=== PATIENT | female | born 1985 | race Caucasian/White ===

== ENCOUNTER 2016-04-16 15:07 | Observation (INO) | payer BC ==
[~2016-04-16 15:07] MED LIST: LBT300 PO; ONDA4TAB7 SL; PROM25TA16 PO
[2016-04-16] MEDS ORDERED: LABETALOL HCL 200 MG TAB PO SCH (16:30)
[2016-04-16 16:33] LABS: HEMATOCRIT 34.1 % (37-47); MEAN CELL VOLUME 89.5 fL (80-100); MEAN CORPUSCULAR HEMOGLOBIN 33.1 pg (25-34); MEAN PLATELET VOLUME 9.8 fL (7.4-10.4); PLATELET COUNT 224 K/uL (130-400); RED BLOOD COUNT 3.81 M/uL (4.2-5.4); WHITE BLOOD COUNT 13.12 K/uL (4.8-10.8)
[2016-04-16] MEDS: LACTATED RINGER'S 1000ML 1,000 ML IV SCH ×2 (17:06→20:54)
[2016-04-16 17:07] LABS: ALB/GLOB RATIO 0.7 (0.9-2); ALKALINE PHOSPHATASE 94 U/L (45-117); ALT/SGPT 25 U/L (12-78); AST/SGOT 14 U/L (15-37); BLOOD UREA NITROGEN 5 mg/dl (7-18); BUN/CREATININE RATIO 9.6 (10-20); CARBON DIOXIDE 20 mmol/L (21-32); CHLORIDE 106 mmol/L (98-107); CREATININE 0.48 mg/dl (0.60-1.20); GLUCOSE 92 mg/dl (70-99); POTASSIUM 3.5 mmol/L (3.5-5.1); SODIUM 139 mmol/L (136-145)
[2016-04-16] MEDS ORDERED: HydrALAZINE HCL 20 MG/ML VIAL IV. SCH (18:50)
[2016-04-16] MEDS ORDERED: LABE1TAB28 PO (19:03)
[2016-04-16] MEDS: ONDANSETRON INJ 2 MG/ML 2 ML VIAL IV PRN (19:16)
[2016-04-16] MEDS ORDERED: NIFEdipine 10 MG CAP PO STA (19:55)
[2016-04-16] MEDS ORDERED: OXYCODONE/ACETAMINOPHEN 7.5-325 TAB PO PRN (20:15)
[2016-04-16] MEDS ORDERED: DOXY25TA7 (20:23)
[2016-04-16] MEDS: OXYCODONE/ACETAMINOPHEN 5-325 TAB PO PRN (20:40)
[2016-04-16] MEDS ORDERED: PANTOprazole SOD 40 MG TAB PO STA (21:15)
[2016-04-16] MEDS ORDERED: ZOLPIDEM TARTRATE 5 MG TAB PO PRN (21:15)
--- NOTE | 2016-04-16 22:24 | HISTORY & PHYSICAL EXAMINATION ---
DATE OF ADMISSION: 04/16/2016 The patient is a 31-year-old G3, P1, due date 05/27/2016, making her 34 weeks and 1 day today. The patient has a history of chronic gestational hypertension and is on 400 mg of labetalol 3 times a day. She was seen by maternal medicine yesterday for growth scan. growth scan was normal. She called today the office with complaints of headaches and generalized discomfort. She was sent to labor and delivery for evaluation. On arrival to labor and delivery, she has no shortness of breath or chills. She does complain of a funny sensation in her throat. She has a history of gastroesophageal reflux disease and thinks it is reflux. Pulse ox on room air is 98%. The patient is placed on the monitor and heart rate is category 1. She does not have contractions every 2-4 minutes. Cervical exam is 2 cm dilated. Cervix is thick with no effacement, -3 station. The patient's initial blood pressures on arrival are in the 170s/90s. COURSE: Gestational hypertension, on 400 mg of labetalol 3 times a day. PAST MEDICAL HISTORY: History of varicella, history of migraines, history of nephrolithiasis. PAST SURGICAL HISTORY: The patient has a history of ear surgery and breast augmentation as well as D\T\C. SOCIAL HISTORY: The patient denies tobacco, drug or alcohol use. MEDICATIONS: The patient is on vitamins, Protonix, as well as labetalol 400 mg 3 times a day. PHYSICAL EXAMINATION: GENERAL: Well-developed, well-nourished white female, in no acute distress. HEART: S1, S2, regular rhythm and rate. LUNGS: Clear to auscultation bilaterally. ABDOMEN: Gravid. The patient is having contractions about 2-4 minutes. PELVIC: The patient is 2 cm dilated. Cervix is thick. No effacement. The patient does have a little bit of bloody show upon examination with a speculum. EXTREMITIES: No cyanosis, clubbing or edema. ASSESSMENT AND PLAN: A 31-year-old G3, P1, at 34-plus weeks, history of gestational hypertension, on labetalol 400 mg 3 times a day. The patient continues to have elevated blood pressures. Plan is to admit the patient, follow her blood pressures and adjust her blood pressure medication. The patient has already started to benefit. Bedside ultrasound shows cephalic presentation of fetus.
[2016-04-17] MEDS ORDERED: LABETALOL HCL 100 MG TAB PO SCH
[2016-04-17] MEDS: ONDANSETRON INJ 2 MG/ML 2 ML VIAL IV PRN ×3 (00:28→11:31)
[2016-04-17] MEDS ORDERED: NURSING VERBAL MED ORDER ONE (00:45)
[2016-04-17] MEDS ORDERED: PROMETHAZINE HCL INJ 25 MG in SODIUM CHLORIDE 0.9% 50ML 50 ML IV STA (00:45)
[2016-04-17] MEDS: OXYCODONE/ACETAMINOPHEN 5-325 TAB PO PRN ×2 (01:03→07:10)
[2016-04-17] MEDS: LACTATED RINGER'S 1000ML 1,000 ML IV SCH ×2 (05:02→11:37)
[2016-04-17] MEDS: LABETALOL HCL 200 MG TAB PO SCH ×2 (08:00→13:51)
[2016-04-17] MEDS ORDERED: PROMETHAZINE HCL INJ 25 MG in SODIUM CHLORIDE 0.9% 50ML 50 ML IV PRN (11:45)
[2016-04-17 12:28] LABS: BASO % 0.2 %; BASO ABS # 0.02 K/uL (0-0.2); COMPLETE YES; EOS % 0.2 %; HEMATOCRIT 30.4 % (37-47); IG% 0.4 %; LYMPH % 16.3 %; LYMPH ABS # 2.09 K/uL (1.2-3.4); MEAN CELL VOLUME 90.7 fL (80-100); MEAN CORPUSCULAR HEMOGLOBIN 31.9 pg (25-34); MEAN CORPUSCULAR HGB CONC 35.2 g/dl (32-36); MEAN PLATELET VOLUME 9.8 fL (7.4-10.4); MONO % 6.7 %; NEUT % 76.2 %; PLATELET COUNT 223 K/uL (130-400); RED BLOOD COUNT 3.35 M/uL (4.2-5.4)
[2016-04-17] MEDS ORDERED: OXYCODONE/ACETAMINOPHEN 5-325 TAB PO PRN (12:30)
[2016-04-17] MEDS ORDERED: LACTATED RINGER'S 1000ML 1,000 ML IV SCH (12:30)
[2016-04-17 13:03] LABS: ALT/SGPT 20 U/L (12-78); AST/SGOT 13 U/L (15-37); BLOOD UREA NITROGEN 4 mg/dl (7-18); CALCIUM 8.3 mg/dl (8.5-10.1); CARBON DIOXIDE 20 mmol/L (21-32); CHLORIDE 109 mmol/L (98-107); CREATININE 0.45 mg/dl (0.60-1.20); GLUCOSE 69 mg/dl (70-99); POTASSIUM 3.5 mmol/L (3.5-5.1); SODIUM 140 mmol/L (136-145)
[2016-04-17 13:21] LABS: ALB/GLOB RATIO 0.7 (0.9-2); ALKALINE PHOSPHATASE 80 U/L (45-117)
[2016-04-17] MEDS ORDERED: IV FLUIDS COMPLETED PRN (14:15)
[2016-04-17 14:44] LABS: URINE APPEARANCE CLEAR (CLEAR); URINE BILIRUBIN NEG (NEG); URINE COLOR YELLOW; URINE EPITHELIAL CELL AUTO >30 /lpf (0-5); URINE NITRITE NEG (NEG); URINE PH >= 9.0 (4.5-7.5); URINE SPECIFIC GRAVITY 1.014 (1.000-1.030); UROBILINOGEN NEG (NEG)
[2016-04-17 15:03] LABS: MANUAL MICROSCOPIC REQUIRED? NO; REVIEW REQ? NO; URINE PROTIEN/CREAT RATIO 0.4 (0-0.2); URINE TOTAL PROTEIN 17.5 mg/dl (0-11.9)
[2016-04-17] MEDS ORDERED: ACET-749 PO (15:55)
--- NOTE | 2016-04-17 15:57 | Discharge Instructions ---
Discharge Instructions Admission Reason for Admission: Prolonged Monitoring, Blood Pressure Check Discharge Discharge Diagnosis / Problem: Gestational hypertension Discharge Goals Goal(s): Continuing OB care Activity Recommendations Activity Limitations: as noted below Lifting Limitations: no more than 25 pounds Exercise/Sports Limitations: rest today May Resume Sexual Activity: after follow-up appointment Shower/Bathe: no limitations Driving or Machine Use: resume 1 day after discharge ACTIVITY RECOMMENDATIONS: See Labor Sheet. SPECIAL CARE INSTRUCTIONS: Call Doctor if: * Regular contractions every 5 minutes or greater than 5 contractions in one hour. * Bleeding * Water breaks or is leaking * Decreased movement * Fever >100.4 degrees F * Pain not relieved by routine measures or pain medication ordered. FOLLOW UP VISIT: Return to Labor and Delivery on for /call for appointment time . Follow-up Visit with: When: . Current Hospital Diet Patient's current hospital diet: Regular Diet Discharge Diet Recommended Diet: Low Sodium Diet (2gm Na) Pending Studies Studies pending at discharge: no Medical Emergencies . Who to Call and When: Medical Emergencies: If at any time you feel your situation is an emergency, please call 911 immediately. . Non-Emergent Contact Non-Emergency issues call your: Surgeon Call Non-Emergent contact if: temperature is above 100.5, your pain is worsening . . "Provider Documentation" section prepared by Nathen Chapman. VTE Core Measure Inpt VTE Proph given/why not?: Treatment not indicated
--- NOTE | 2016-04-20 22:23 | DISCHARGE SUMMARY ---
CHIEF COMPLAINT: 1. complicated by hypertension. 2. History of headaches. HISTORY OF PRESENT ILLNESS: This is a 31-year-old G3, P1, due date 05/27/2016, making her 34 weeks and 1 day on 04/17/2016. The patient had a history of gestational hypertension, was on 400 mg of labetalol 3 times a day. She was seen by maternal medicine on 04/16/2016 for growth scan. Growth scan was normal. The patient called the office on 04/17/2016 with complaints of headache and generalized discomfort. She was sent to labor and delivery for evaluation. In labor and delivery, she had no shortness of breath, no chills, no fever. She had complaints of a funny sensation in her throat which was consistent with her history of gastroesophageal reflux disease. Pulse ox on room air was 98%. She was placed on the monitor and heart rate was category 1. She was brandon every 2-4 minutes. Cervical exam showed she was 2 cm dilated. Cervix, however, was thick with no effacement and -3 station. The patient's blood pressure on arrival was 170s over 90s. She received hydralazine and Procardia. Her blood pressure medication was adjusted. Her blood pressure improved to 130s-140s over 80. She underwent a workup for preeclampsia which was unremarkable. PAST MEDICAL HISTORY: 1. Gestational hypertension. 2. Gastroesophageal reflux disease. 3. History of migraines. 4. History of nephrolithiasis. PAST SURGICAL HISTORY: The patient has a history of ear and breast surgery. SOCIAL HISTORY: The patient denies tobacco, drug or alcohol use. MEDICATIONS: The patient was on labetalol 400 mg 3 times a day with Protonix and vitamins. FAMILY HISTORY: Noncontributory. ALLERGIES: THE PATIENT IS ALLERGIC TO BUTORPHANOL. PHYSICAL EXAMINATION: GENERAL: Well-developed, well-nourished white female in no acute distress. HEART: S1, S2, regular rhythm and rate. LUNGS: Clear to auscultation bilaterally. ABDOMEN: Nontender, nondistended. heart rate is category 1. PELVIC: The patient was 2 cm dilated. Cervix, however, was thick and -3. EXTREMITIES: No cyanosis, clubbing or edema. LABORATORY DATA: On 04/17/2016 showed hemoglobin of 10.7, hematocrit of 30.4. Complete chemistry was unremarkable. CONDITION ON DISCHARGE: Stable. OPERATION: None. DISCHARGE DIAGNOSES: 1. Gestational hypertension. 2. Headaches in . 3. Gastroesophageal reflux disease. PLAN ON DISCHARGE: The patient is discharged home with instructions regarding activity, diet, followup appointment and medication change.
== END 2016-04-17 16:20 | disposition home or self-care (01) ==
LOC: C.LD 15:07 → C.OPB 15:07 → C.LD 04-17 08:41
PROVIDERS: ADMIT Obstetrics & Gynecology; ATTEND Obstetrics & Gynecology
DX: O13.3 Gestational [pregnancy-induced] hypertension without significant proteinuria, third trimester (principal); O99.613 Diseases of the digestive system complicating pregnancy, third trimester; K21.9 Gastro-esophageal reflux disease without esophagitis; Z3A.34 34 weeks gestation of pregnancy; Z87.442 Personal history of urinary calculi

== ENCOUNTER 2016-04-28 17:00 | Inpatient (IN) | payer BC ==
[~2016-04-28] VITALS: Ht 160 cm; Wt 64.5 kg
[~2016-04-28 17:00] MED LIST changes: +ACET-749 PO; -LBT300 PO; -PROM25TA16 PO
[2016-04-28] MEDS ORDERED: PRENTAB26 PO (17:34)
[2016-04-28] MEDS ORDERED: LABE1TAB28 PO (17:34)
[2016-04-28 17:36] VITALS: Ht 160 cm; Wt 64.5 kg
[2016-04-28] MEDS ORDERED: MoRPHine SULFATE 10 MG/ML CARP/VIAL IV STA (17:48)
[2016-04-28] MEDS: LACTATED RINGER'S 1000ML 1,000 ML IV SCH (18:00)
[2016-04-28 18:01] LABS: BASO % 0.1 %; BASO ABS # 0.02 K/uL (0-0.2); EOS % 0.4 %; HEMATOCRIT 34.5 % (37-47); IG% 0.5 %; LYMPH % 20.9 %; MEAN CELL VOLUME 88.7 fL (80-100); MEAN CORPUSCULAR HEMOGLOBIN 32.4 pg (25-34); MEAN PLATELET VOLUME 9.8 fL (7.4-10.4); MONO % 3.4 %; NEUT % 74.7 %; PLATELET COUNT 195 K/uL (130-400); RED BLOOD COUNT 3.89 M/uL (4.2-5.4); WHITE BLOOD COUNT 13.38 K/uL (4.8-10.8)
[2016-04-28 18:17] LABS: COMPLETE YES; MEAN CORPUSCULAR HGB CONC 36.5 g/dl (32-36)
[2016-04-28 18:29] LABS: ALT/SGPT 17 U/L (12-78); AST/SGOT 13 U/L (15-37); BLOOD UREA NITROGEN 7 mg/dl (7-18); BUN/CREATININE RATIO 13.9 (10-20); CALCIUM 8.2 mg/dl (8.5-10.1); CARBON DIOXIDE 21 mmol/L (21-32); CHLORIDE 107 mmol/L (98-107); CREATININE 0.49 mg/dl (0.60-1.20); GLUCOSE 83 mg/dl (70-99); POTASSIUM 3.1 mmol/L (3.5-5.1); SODIUM 140 mmol/L (136-145); URIC ACID 4.4 mg/dl (2.6-7.2)
[2016-04-28] MEDS ORDERED: LABETALOL PO SCH ×2 (20:00)
[2016-04-28] MEDS ORDERED: LABETALOL HCL 300 MG TAB PO SCH (20:00)
[2016-04-28] MEDS ORDERED: NURSING VERBAL MED ORDER ONE (20:45)
[2016-04-28] MEDS ORDERED: ZOLPIDEM TARTRATE 10 MG TAB PO PRN (20:45)
[2016-04-28] MEDS ORDERED: IV FLUIDS COMPLETED PRN (20:45)
[2016-04-28] MEDS ORDERED: TERBUTALINE SULFATE 1 MG/ML VIAL SQ ONE (21:00)
[2016-04-28] MEDS: OXYCODONE/ACETAMINOPHEN 5-325 TAB PO PRN (21:34)
[2016-04-28] MEDS: ONDANSETRON INJ 2 MG/ML 2 ML VIAL IV PRN (23:42)
[2016-04-29] MEDS: LACTATED RINGER'S 1000ML 1,000 ML IV SCH ×2 (03:21→12:19)
[2016-04-29] MEDS: LABETALOL PO SCH ×6 (03:45→20:20)
[2016-04-29] MEDS ORDERED: HydrALAZINE HCL 20 MG/ML VIAL IV. STA (09:44)
[2016-04-29] MEDS ORDERED: MAGNESIUM SULFATE / WTR 1,000 ML IV SCH (11:14)
[2016-04-29] MEDS ORDERED: HydrALAZINE HCL 20 MG/ML VIAL IV. PRN (11:15)
[2016-04-29] MEDS ORDERED: LACTATED RINGER'S 1000ML 500 ML IV PRN ×2 (11:17→22:31)
[2016-04-29] MEDS ORDERED: OXYTOCIN 30 UNITS/500ML NSS IV PRN (11:30)
[2016-04-29] MEDS ORDERED: MAGNESIUM SULFATE 4GM / WTR 100ML IV ONE (11:30)
[2016-04-29 11:50] LABS: BASO % 0.2 %; BASO ABS # 0.02 K/uL (0-0.2); EOS % 0.3 %; HEMATOCRIT 32.7 % (37-47); IG% 0.3 %; LYMPH % 14.8 %; LYMPH ABS # 1.71 K/uL (1.2-3.4); MEAN CELL VOLUME 88.1 fL (80-100); MEAN CORPUSCULAR HEMOGLOBIN 32.3 pg (25-34); MEAN PLATELET VOLUME 9.9 fL (7.4-10.4); MONO % 4.1 %; NEUT % 80.3 %; PLATELET COUNT 176 K/uL (130-400); RED BLOOD COUNT 3.71 M/uL (4.2-5.4); WHITE BLOOD COUNT 11.57 K/uL (4.8-10.8)
[2016-04-29 11:52] LABS: COMPLETE YES; MEAN CORPUSCULAR HGB CONC 36.7 g/dl (32-36)
[2016-04-29 12:00] LABS: INR 0.9 (0.9-1.1); PROTHROMBIN TIME (PATIENT) 9.8 SECONDS (9.0-12.0)
[2016-04-29 12:13] LABS: ALT/SGPT 12 U/L (12-78); AST/SGOT 15 U/L (15-37); BLOOD UREA NITROGEN 4 mg/dl (7-18); CALCIUM 8.8 mg/dl (8.5-10.1); CARBON DIOXIDE 19 mmol/L (21-32); CHLORIDE 108 mmol/L (98-107); GLUCOSE 78 mg/dl (70-99); MAGNESIUM 1.9 mg/dl (1.8-2.4); POTASSIUM 3.5 mmol/L (3.5-5.1); SODIUM 141 mmol/L (136-145)
[2016-04-29 12:16] LABS: ALB/GLOB RATIO 0.7 (0.9-2); ALKALINE PHOSPHATASE 94 U/L (45-117)
[2016-04-29] MEDS: ONDANSETRON INJ 2 MG/ML 2 ML VIAL IV PRN ×2 (12:56→21:08)
[2016-04-29] MEDS ORDERED: PENICILLIN G POTASSIUM IV 6 MU in DEXTROSE 5% 250ML 250 ML IV ONE (14:00)
[2016-04-29] MEDS ORDERED: ACETAMINOPHEN 325 MG TAB PO PRN (16:30)
[2016-04-29] MEDS ORDERED: ACETAMINOPHEN 325 MG TAB ONE (16:40)
[2016-04-29] MEDS: PENICILLIN G POTASSIUM IV 3 MU in DEXTROSE 5% 100ML 100 ML IV PRN ×2 (17:58→22:29)
[2016-04-29] MEDS: OXYCODONE/ACETAMINOPHEN 5-325 TAB PO PRN (18:12)
[2016-04-29] MEDS ORDERED: BUPIVACAINE 0.25% 30 ML VIAL ONE (21:38)
[2016-04-29] MEDS ORDERED: EpHEDrine SULFATE INJ 50 MG/ML AMP ONE (21:38)
[2016-04-29] MEDS ORDERED: FENTANYL CITRATE INJ 50 MCG/1 ML 2 ML VIAL ONE (21:39)
[2016-04-29] MEDS ORDERED: FENTANYL 2MCG/ML ROPIV 1.25MG/ML 100ML BAG EPI ONE (21:39)
[2016-04-29] MEDS ORDERED: NALOXONE HCL INJ 1 MG in SODIUM CHLORIDE 0.9% 1000ML 1,000 ML IV PRN ×4 (22:31)
[2016-04-29] MEDS ORDERED: DiphenhydrAMINE HCL 50 MG/ML VIAL IV PRN (22:45)
[2016-04-29] MEDS ORDERED: NALOXONE HCL INJ 0.4 MG/1 ML VIAL/CARP IV PRN (22:45)
[2016-04-29] MEDS ORDERED: FENTANYL 2MCG/ML ROPIV 1.25MG/ML 100ML BAG EPI PRN (22:45)
[2016-04-29] MEDS ORDERED: EpHEDrine SULFATE INJ 50 MG/ML AMP IV PRN (22:45)
[2016-04-29] MEDS ORDERED: ONDANSETRON INJ 2 MG/ML 2 ML VIAL IV PRN (22:45)
[2016-04-29] MEDS ORDERED: NALBUPHINE HCL INJ 10 MG/ML AMP IV PRN (22:45)
[2016-04-29] MEDS ORDERED: PROMETHAZINE HCL INJ 25 MG in SODIUM CHLORIDE 0.9% 50ML 50 ML IV PRN (22:45)
[2016-04-29 23:24] LABS: URINE TOTAL PROTEIN 9.9 mg/dl (0-11.9)
[2016-04-29 23:27] LABS: URINE TOTAL PROTEIN CALC 323.7 mg/24 hr (0-149.1)
[2016-04-30] MEDS ORDERED: BENZOCAINE 20% AER SPR 82.5 GM CAN EXT PRN (03:45)
[2016-04-30] MEDS ORDERED: MEASLES, MUMPS & RUBELLA VIRUS VIAL SQ. ONE (03:45)
[2016-04-30] MEDS ORDERED: SUPERCREAM 0.870 % 15GM JAR EXT PRN (03:45)
[2016-04-30] MEDS ORDERED: OXYCODONE/ACETAMINOPHEN 5-325 TAB PO PRN (03:45)
[2016-04-30] MEDS ORDERED: HYDROCORTISONE ACETATE 25 MG SUPP PR PRN (03:45)
[2016-04-30] MEDS ORDERED: DIPHTHERIA/TETANUS/PERTUSSIS 0.5 ML SYR/VIAL IM. ONE (03:45)
[2016-04-30] MEDS ORDERED: ACETAMINOPHEN 325 MG TAB PO PRN (03:45)
[2016-04-30] MEDS ORDERED: LANOLIN OINT EXT PRN ×2 (03:45)
[2016-04-30] MEDS ORDERED: OXYTOCIN 30 UNITS/500ML NSS IV PRN (03:45)
[2016-04-30] MEDS ORDERED: LABETALOL HCL 300 MG TAB PO SCH (04:00)
[2016-04-30] MEDS: IBUPROFEN 600 MG TAB PO PRN ×4 (04:25→17:22)
[2016-04-30] MEDS ORDERED: ONDANSETRON 4MG OD TAB PO PRN (04:30)
[2016-04-30] MEDS: MAGNESIUM SULFATE / WTR 1,000 ML IV SCH ×2 (05:41→13:49)
[2016-04-30] MEDS: PRENATAL VITAMIN TAB PO SCH (08:00)
[2016-04-30] MEDS: FERROUS SULFATE 325 MG TAB PO SCH (08:00)
[2016-04-30] MEDS: DOCUSATE SODIUM 100 MG CAP PO SCH ×2 (08:00→20:00)
[2016-04-30 08:14] LABS: HEMATOCRIT 30.4 % (37-47); MEAN CELL VOLUME 89.7 fL (80-100); MEAN CORPUSCULAR HEMOGLOBIN 31.6 pg (25-34); MEAN CORPUSCULAR HGB CONC 35.2 g/dl (32-36); MEAN PLATELET VOLUME 10.1 fL (7.4-10.4); PLATELET COUNT 176 K/uL (130-400); RED BLOOD COUNT 3.39 M/uL (4.2-5.4); WHITE BLOOD COUNT 11.97 K/uL (4.8-10.8)
--- NOTE | 2016-04-30 08:47 | DELIVERY SUMMARY ---
DATE OF OPERATION: 04/30/2016 TIME OF DELIVERY OF BABY: 321. TIME OF DELIVERY OF PLACENTA: 328. DETAILS OF DELIVERY: The patient felt pressure and the head was found to be over the perineum and then head was delivered spontaneously and then shoulders again spontaneously right after the head. The baby was handed off to the mother where mouth and nose were suctioned. Cord was clamped x2 after 30 seconds and then cut, it was a 3-vessel cord. Cord blood was obtained. Baby was a viable male and vigorously crying. Vagina and perineum were checked for lacerations. There were first-degree lacerations bilaterally on both labia minora and one in the perineum on the posterior fourchette. They were repaired with 3-0 Vicryl on SH needle with [id number] stitches on each sides. Excellent hemostasis was achieved. Placenta was found to be in the vagina, delivered spontaneously intact and complete. Uterus was explored and found to be empty. Lower segment was cleared off all clots and debris. Fundus was firm. EBL was 100. Baby was a viable male infant with Apgars 8/9, weight is pending. No complications happened. Mother and baby tolerated the procedure well. Sponge, needle and instrument counts were correct x2 and I was present during the whole procedure. I attest to the content of the Intraoperative Record and any orders documented therein. Any exceptions are noted below. MTDD
--- NOTE | 2016-04-30 09:09 | Anesthesia Procedure Note ---
Anesthesia Epidural Removal Nt Date & Time Apr 30, 2016 at 09:09 Vital Signs Pain Intensity: 0.0 Notes Mental Status: alert / awake / arousable, participated in evaluation Nausea / Vomiting: adequately controlled Pain: adequately controlled Airway Patency, RR, SpO2: stable & adequate BP & HR: stable & adequate Hydration State: stable & adequate Neuraxial Anesthesia: was administered Anesthetic Complications: no major complications apparent, pt satisfied with anesthetic care Epidural: removed without complications, with tip intact
--- NOTE | 2016-04-30 09:24 | OB/GYN Progress Note ---
[employer] Progress Note Date of Service Apr 30, 2016. Subjective conversation w/ patient, physical exam Ambulation: limited ambulation Voiding: cruz catheter in place Passing Gas: Yes Diet Tolerance: Regular Diet Lochia: Small Feeding Type: Breast Feeding Objective Physical Exam General Appearance: WELL-APPEARING, NO APPARENT DISTRESS Abdomen: non tender, soft Fundus: Firm Extremities: non-tender, normal inspection, no pedal edema, no calf tenderness Laboratory Results Last 24 Hours Test 04/29/16 11:35 04/29/16 19:50 04/29/16 20:07 04/30/16 01:44 White Blood Count 11.57 K/uL Red Blood Count 3.71 M/uL Hemoglobin 12.0 g/dL Hematocrit 32.7 % Mean Corpuscular Volume 88.1 fL Mean Corpuscular Hemoglobin 32.3 pg Mean Corpuscular Hemoglobin Concent 36.7 g/dl Platelet Count 176 K/uL Mean Platelet Volume 9.9 fL Neutrophils (%) (Auto) 80.3 % Lymphocytes (%) (Auto) 14.8 % Monocytes (%) (Auto) 4.1 % Eosinophils (%) (Auto) 0.3 % Basophils (%) (Auto) 0.2 % Neutrophils # (Auto) 9.30 K/uL Lymphocytes # (Auto) 1.71 K/uL Monocytes # (Auto) 0.47 K/uL Eosinophils # (Auto) 0.03 K/uL Basophils # (Auto) 0.02 K/uL RDW Standard Deviation 41.7 fL RDW Coefficient of Variation 12.9 % Immature Granulocyte % (Auto) 0.3 % Immature Granulocyte # (Auto) 0.04 K/uL Prothrombin Time 9.8 SECONDS Prothromb Time International Ratio 0.9 Activated Partial Thromboplast Time 27.2 SECONDS Partial Thromboplastin Ratio 1.0 Sodium Level 141 mmol/L Potassium Level 3.5 mmol/L Chloride Level 108 mmol/L Carbon Dioxide Level 19 mmol/L Anion Gap 14.0 mmol/L Blood Urea Nitrogen 4 mg/dl Creatinine 0.40 mg/dl Est Creatinine Clear Calc Drug Dose 187.5 ml/min Estimated GFR () > 150.0 Estimated GFR (Non- 140.8 BUN/Creatinine Ratio 9.0 Random Glucose 78 mg/dl Calcium Level 8.8 mg/dl Magnesium Level 1.9 mg/dl 5.4 mg/dl 5.4 mg/dl Total Bilirubin 0.3 mg/dl Aspartate Amino Transf (AST/SGOT) 15 U/L Alanine Aminotransferase (ALT/SGPT) 12 U/L Alkaline Phosphatase 94 U/L Lactate Dehydrogenase 132 U/L Total Protein 6.5 gm/dl Albumin 2.7 gm/dl Globulin 3.8 gm/dl Albumin/Globulin Ratio 0.7 Urine Collection Time 24 HOURS Urine Total Volume 3270 mL Urine Total Protein 24 Hour 323.7 mg/24 hr Urine Total Protein 9.9 mg/dl Test 04/30/16 07:47 White Blood Count 11.97 K/uL Red Blood Count 3.39 M/uL Hemoglobin 10.7 g/dL Hematocrit 30.4 % Mean Corpuscular Volume 89.7 fL Mean Corpuscular Hemoglobin 31.6 pg Mean Corpuscular Hemoglobin Concent 35.2 g/dl RDW Standard Deviation 41.9 fL RDW Coefficient of Variation 13.0 % Platelet Count 176 K/uL Mean Platelet Volume 10.1 fL Magnesium Level 5.0 mg/dl Assessment and Plan Post- Day Number: Continue Routine Care: Stop Labetalol continue Magnesium sulfate for 24 hours monitor urine output
[2016-04-30] MEDS: LACTATED RINGER'S 1000ML 1,000 ML IV SCH ×2 (09:34→19:33)
[2016-04-30] MEDS: ZOLPIDEM TARTRATE 5 MG TAB PO PRN (21:26)
[2016-04-30] MEDS ORDERED: NURSING VERBAL MED ORDER ONE (22:15)
[2016-05-01 03:45] VITALS: BP 132/86; PULSE 70; TEMP 36.9
[2016-05-01 07:20] VITALS: BP 111/70; PULSE 61
[2016-05-01 07:45] VITALS: BP 119/67; PULSE 69; TEMP 36.7
[2016-05-01] MEDS: FERROUS SULFATE 325 MG TAB PO SCH (08:40)
[2016-05-01] MEDS: DOCUSATE SODIUM 100 MG CAP PO SCH ×2 (08:40→19:42)
[2016-05-01] MEDS: PRENATAL VITAMIN TAB PO SCH (08:40)
--- NOTE | 2016-05-01 10:29 | OB/GYN Progress Note ---
ADULT AND PEDIATRIC NEUROLOGIST Progress Note Date of Service: May 01, 2016. Patient is seen and examined. She feels " much better", no complaints. No more PAUL or nausea. She states those stopped 2 hours after she had the baby. Ambulating without dizziness. Voiding without difficulty Tolerating regular diet with out N&V Bleeding is minimal No fever/ chills/ CP/ SOB/ N&V/ Leg pain Bottle feeding without problems Date Time Temp Pulse Resp B/P Pulse Ox O2 Delivery O2 Flow Rate FiO2 05/01/16 07:20 61 111/70 05/01/16 03:45 36.9 70 18 132/86 Room Air 05/01/16 03:45 Room Air Last 24 Hours Test 04/30/16 14:15 04/30/16 20:07 05/01/16 01:49 Magnesium Level 4.3 mg/dl 4.1 mg/dl 3.9 mg/dl PE: General: Alert, orientedx3, NAD Abd: soft, NT, fundus firm, below Umbilicus Perineum intact, Lochia rubra minimal Ext; NT, no edema, Radha's sign neg/ neg AP: 31 yo s/p , s/p IOL for severe preeclampsia, ppd# 1 VSS Afebrile doing well off mag since 4 am Continue routine care All questions were answered D/C home tomorrow
[2016-05-01] MEDS: IBUPROFEN 600 MG TAB PO PRN ×2 (10:37→19:43)
[2016-05-01 15:45] VITALS: BP 136/83; PULSE 66; TEMP 36.4
[2016-05-01 19:45] VITALS: BP 138/79; PULSE 69; TEMP 37.3
[2016-05-01] MEDS ORDERED: BISACODYL 5 MG TABEC PO SCH (20:00)
[2016-05-01 23:45] VITALS: BP 137/77; PULSE 56; TEMP 36.7
[2016-05-02] MEDS: ZOLPIDEM TARTRATE 5 MG TAB PO PRN (00:11)
[2016-05-02] MEDS: IBUPROFEN 600 MG TAB PO PRN (03:53)
[2016-05-02] MEDS ORDERED: BISACODYL 10 MG SUPP PR PRN (07:00)
[2016-05-02 07:40] VITALS: BP 128/78; TEMP 36.5
[2016-05-02] MEDS ORDERED: MTR600X PO (08:22)
--- NOTE | 2016-05-02 08:25 | Discharge Instructions ---
Discharge Instructions Admission Reason for Admission: Blood Pressure Check Discharge Discharge Diagnosis / Problem: term pregnacy Discharge Goals Goal(s): Routine recovery after delivery Activity Recommendations Activity Limitations: as noted below Lifting Limitations: no more than 10 pounds Exercise/Sports Limitations: gradually increase as tolerated May Resume Sexual Activity: after follow-up appointment Shower/Bathe: no limitations Driving or Machine Use: resume 3 days after discharge . Instructions / Follow-Up Instructions / Follow-Up ACTIVITY RECOMMENDATIONS: * Gradual return to full activity over the next 2-3 weeks. * No lifting - nothing heavier than baby over the next 2-3 weeks. * Do not engage in vigorous exercise, sexual activity or sports until cleared by your physician. * Do not drive or operate any motorized equipment until cleared by your physician. * You may shower/bathe daily. BREAST CARE: If you are not breast feeding: * Wear a supportive bra 24 hours a day for one to two weeks. * Avoid stimulating your breasts and nipples as much as possible during the first few weeks after delivery. * When taking a shower, have the warm water hit your back, not breasts. * When your breasts feel full, apply ice packs. Usually three to four times a day helps ease the discomfort. * Take a mild pain medication (Tylenol/Motrin) when you are uncomfortable. If breast feeding: * Use breast milk to lubricate nipples. Lansinoh cream may be used for sore nipples. You do not need to remove cream prior to breast feeding. If using a different brand of cream, check the label for directions regarding removal of cream prior to nursing. * Wear a supportive bra. * If having problems with breasts or breast feeding, call a review consultant or your health care provider. EPISIOTOMY CARE: After delivery, if you have an episiotomy (stitches), the following steps will ease discomfort and aid healing. * For the first 24 hours after delivery, place ice packs next to your episiotomy to help reduce swelling. * After the first 24 hour-period, sitz baths, either portable or in the tub, are suggested. A shower with a shower arm sprayed over the episiotomy may be comforting. * Jackie care should be done after each voiding and bowel movement. Squirt warm water from a plastic bottle over the perineum (region of the body between the anus and urinary opening) and pat dry. * Use Dermoplast to ease discomfort. Shake container. [place] directly over the episiotomy. * Place a Tucks on a clean sanitary pad next to your episiotomy. OVER THE COUNTER MEDICATION: * For discomfort or pain, you may use Acetaminophen (Tylenol), Ibuprofen (Advil ), or Naproxen (Aleve) following the package directions. * For constipation you may use Colace following the package directions. SPECIAL CARE INSTRUCTIONS: When you are discharged from the hospital, it is important for you to follow the instructions listed below: * During the first week at home, you should be able to care for yourself and your baby. In addition, the usual light household activities are encouraged. * Limit your activities to the way you feel. Do not try to clean the house or move furniture. Be sensible. * If you actively engage in sports and have done so up until the time of your delivery, you may resume these activities as soon as you feel able. This may take up to one month or even longer. Use good judgment. * Continue to take your vitamins for at least six weeks after the of your baby. * Your diet need not be limited unless you were on a special diet before your delivery. Breast-feeding mothers need around 2500 calories per day and at least 64-80 ounces of fluid per day (8 to 10 glasses). * You should eat foods from the four major food groups. Crash diets or fad diets are to be avoided. Eating lean meats, fresh fruits and vegetables, low-fat dairy products, high fiber foods and a regular exercise program, will help you get back to your pre- weight without putting your health at risk. * Constipation is sometimes a problem after delivery. Take a mild laxative as needed. If breast feeding, Milk of Magnesia is acceptable to use. You may use a suppository or Fleets enema if no episiotomy. * A daily shower or tub bath is suggested. Be sure to thoroughly and gently dry the perineum. * A bloody vaginal discharge will usually continue until around four weeks post . A small amount of bleeding may continue for as long as six weeks. Vaginal discharge changes from the bright red bleeding after delivery to pink then brownish and finally yellowish-pink before becoming white and disappearing. * Bleeding may increase with activity. Your first period may come in 4-8 weeks. If you are breast feeding, your period may be delayed even longer. * [place] (sex) can begin whenever both you and your partner feel comfortable and do not have any form of genital infection. It is recommended that you wait until after your return appointment and discuss with your physician. If you have questions, please talk to your health care practitioner. A condom should be used to prevent infection and . * Foreplay, gentle intercourse and lubrication is very important the first several times to prevent pain. A water-based lubricant such as K-Y jelly or Astroglide may be used. * Tampons may be used six weeks after delivery. * Douching should be avoided for 6 weeks after delivery. * If you have RH negative blood and your baby is RH positive, you will receive RHOGAM by injection prior to discharge. The nurse will give you a card to keep with you that has the date and place that you received RHOGAM after delivery. * During your care, you had a Rubella screen done to check for the presence of rubella antibodies in your blood. If your test was negative, you will receive a Rubella vaccine prior to discharge. This vaccine may cause a fever, soreness at the injection site and flu-like symptoms. If these symptoms persist, notify your health care practitioner. is not advised for three months after a Rubella vaccine. There is a higher chance of having a baby with defects if conceived within three months of getting the vaccine. * If you were discharged 24 hours from delivery or before 48 hours: Visiting nurses will come to your home 48 hours after discharge to assess you and your baby. The visiting nurse will meet with you while you are in the hospital to arrange a time and get directions to your home. * Verbalizes understanding of car seat law as reviewed with patient nursing. * Car Seat hand-out given and reviewed with patient by nursing. * Shaken baby information reviewed with patient by nursing. Call you doctor if: * Heavy bleeding (saturating several pads an hour) or passing clots the size of your fist. * A fever >101 degrees F (38.3 degrees C) on two occasions four hours apart and/or chills. * Unusual pain in the pelvic or vaginal areas. * "Baby Blues" lasting longer than two weeks. If you have any questions or concerns, call your health care practitioner at . FOLLOW-UP VISIT: * Please call the office at to schedule a 6 week examination. It is important you keep this appointment. * It is important for you to make arrangements for either yearly or twice yearly check-ups thereafter. 6 weeks Current Hospital Diet Patient's current hospital diet: N/A, Regular OB Diet Discharge Diet Recommended Diet: Regular OB Diet Fluid Restriction: None Pending Studies Studies pending at discharge: no Medical Emergencies . Who to Call and When: Medical Emergencies: If at any time you feel your situation is an emergency, please call 911 immediately. . Non-Emergent Contact Non-Emergency issues call your: Primary Care Provider . . "Provider Documentation" section prepared by Ulices Barr. VTE Core Measure Inpt VTE Proph given/why not?: Treatment not indicated
--- NOTE | 2016-05-02 08:30 | OB/GYN Progress Note ---
GEOGRAPHIC INFORMATION SYSTEMS ANALYST Progress Note Date of Service May 02, 2016. Subjective conversation w/ patient, physical exam Ambulation: ambulating normally Voiding: no voiding problems Passing Gas: Yes Diet Tolerance: Regular Diet Lochia: Small Feeding Type: Bottle Feeding Objective Vital Signs Date Time Temp Pulse Resp B/P Pulse Ox O2 Delivery O2 Flow Rate FiO2 05/01/16 23:45 Room Air 05/01/16 23:45 36.7 56 18 137/77 Room Air 05/01/16 19:45 37.3 69 18 138/79 Room Air 05/01/16 15:45 Room Air 05/01/16 15:45 36.4 66 16 136/83 Room Air Physical Exam General Appearance: WELL-APPEARING, NO APPARENT DISTRESS Abdomen: non tender, soft Fundus: Firm Extremities: non-tender, normal inspection, no pedal edema, no calf tenderness Assessment and Plan Post- Day Number: 2 Continue Routine Care: discharged
[2016-05-02] MEDS: DOCUSATE SODIUM 100 MG CAP PO SCH (09:02)
[2016-05-02] MEDS: PRENATAL VITAMIN TAB PO SCH (09:02)
[2016-05-02] MEDS: FERROUS SULFATE 325 MG TAB PO SCH (09:02)
[2016-05-02 12:04] VITALS: BP_DIAS 78; PULSE 56; TEMP 36.5
== END 2016-05-02 12:25 | disposition home or self-care (01) | DRG 775 ==
LOC: C.LD 17:00 → C.OPB 17:00 → C.LD 17:35 → OBSVTOIN 04-29 11:17 → C.OBG 05-01 03:45
PROVIDERS: ADMIT Obstetrics & Gynecology; ATTEND Obstetrics & Gynecology
PROC: 10E0XZZ Delivery of Products of Conception, External Approach (ICD-10-PCS; principal; 2016-04-30)
PROC: 0HQ9XZZ Repair Perineum Skin, External Approach (ICD-10-PCS; principal; 2016-04-30)
PROC: 3E033VJ Introduction of Other Hormone into Peripheral Vein, Percutaneous Approach (ICD-10-PCS; principal; 2016-04-30)
DX: O14.14 Severe pre-eclampsia complicating childbirth (principal); O60.14X0 Preterm labor third trimester with preterm delivery third trimester, not applicable or unspecified; O70.0 First degree perineal laceration during delivery; O99.02 Anemia complicating childbirth; D64.9 Anemia, unspecified; Z37.0 Single live birth; Z3A.36 36 weeks gestation of pregnancy; Z79.899 Other long term (current) drug therapy

== ENCOUNTER → 2016-08-06 | Outpatient (CLI) | payer BC ==
[~2016-08-06] MED LIST changes: -ACET-749 PO; +MTR600X PO; +PRENTAB26 PO
--- NOTE | 2016-08-06 17:21 | DIAGNOSTIC IMAGING REPORT ---
CHEST 2 VIEWS ROUTINE CLINICAL HISTORY: Chest pain. COMPARISON STUDY: Chest radiograph and chest CT May 31, 2011. FINDINGS: Interval note is made of bilateral breast implants. There is no pneumothorax or pleural effusion. Cardiac size is normal. Mediastinal contours are normal. There is no evidence of pulmonary edema. IMPRESSION: No acute cardiopulmonary findings. Electronically signed by: Luis Hamilton M.D. 08/06/2016 5:19 PM Dictated Date/Time: 08/06/2016 5:19 PM
== END | disposition home or self-care (01) ==
LOC: C.RAD 16:30
PROVIDERS: ATTEND Nurse Practitioner
DX: R07.9 Chest pain, unspecified (principal)

== ENCOUNTER → 2016-11-05 | Outpatient (CLI) | payer BC ==
--- NOTE | 2016-11-05 08:25 | DIAGNOSTIC IMAGING REPORT ---
ULTRASOUND OF THE THYROID GLAND CLINICAL HISTORY: Palpable nodule. COMPARISON STUDY: No priors. TECHNIQUE: Real-time, grayscale, and color flow sonography of the thyroid gland is performed utilizing a high-frequency linear transducer. Images are reviewed in the transverse and longitudinal planes. FINDINGS: Right lobe: The right lobe of the thyroid gland is normal in size and homogeneous in echotexture, measuring 5.1 x 1.7 x 1.7 cm. There is a complex and largely cystic nodule in the lower pole measuring 1.6 x 1.3 x 1.4 cm. There is a convex nodule containing macroscopic colloid in the mid to lower pole measuring 0.7 x 0.6 x 0.7 cm. Additional subcentimeter hypoechoic nodules/colloid cysts are noted. Left lobe: The left lobe of the thyroid gland is normal in size and homogeneous in echotexture, measuring 4.4 x 1.2 x 1.5 cm. A colloid cyst in the midpole measures 0.6 x 0.4 x 0.5 cm. Additional subcentimeter hypoechoic nodules/colloid cysts are identified. Isthmus: The thyroid isthmus is normal in appearance and measures 0.3 cm in AP diameter. IMPRESSION: 1. There is a 1.6 cm predominantly cystic nodule in the right lower pole. This is of low suspicion and does not meet strict sonographic criteria for fine-needle aspiration (less than 2 cm in size with no microcalcifications identified). A precautionary 6-12 month follow-up ultrasound is recommended. 2. Additional subcentimeter hypoechoic nodules/colloid cysts are present bilaterally. Electronically signed by: Artur Mccabe M.D. 11/05/2016 8:23 AM Dictated Date/Time: 11/05/2016 8:01 AM
[2016-11-05 09:54] LABS: THYROID STIMULATING HORMONE 1.31 uIu/ml (0.300-4.500)
== END | disposition home or self-care (01) ==
LOC: C.ULTR 07:39
PROVIDERS: ATTEND Family Medicine Hospice and Palliative Medicine
DX: E04.2 Nontoxic multinodular goiter (principal)

== ENCOUNTER 2017-07-29 14:28 | Emergency (ER) | payer BC, OTHER ==
[~2017-07-29] VITALS: Ht 157.5 cm; Wt 45.4 kg
[2017-07-29 14:47] VITALS: TEMP 37; Ht 157.5 cm; Wt 45.4 kg
[2017-07-29] MEDS ORDERED: KETOROLAC TROMETHAMINE 30 MG/ML VIAL IV STA (15:34)
[2017-07-29] MEDS ORDERED: SODIUM CHLORIDE 0.9% 1000ML 1,000 ML IV STA ×2 (15:34→16:37)
[2017-07-29] MEDS ORDERED: ONDANSETRON INJ 2 MG/ML 2 ML VIAL IV STA (15:34)
[2017-07-29 16:15] LABS: BASO % 0.5 %; BASO ABS # 0.02 K/uL (0-0.2); EOS % 1.3 %; EOS ABS # 0.05 K/uL (0-0.5); HEMATOCRIT 39.4 % (37-47); HEMOGLOBIN 14.2 g/dL (12.0-16.0); IG# 0.01 K/uL (0.00-0.02); LYMPH % 32.9 %; MEAN CELL VOLUME 87.2 fL (80-100); MEAN CORPUSCULAR HEMOGLOBIN 31.4 pg (25-34); MEAN PLATELET VOLUME 9.3 fL (7.4-10.4); MONO % 7.8 %; MONO ABS # 0.31 K/uL (0.11-0.59); NEUT % 57.2 %; NEUT ABS # 2.26 K/uL (1.4-6.5); PLATELET COUNT 226 K/uL (130-400); RED CELL DISTRIBUTION WIDTH CV 12.9 % (11.5-14.5); RED CELL DISTRIBUTION WIDTH SD 41.2 fL (36.4-46.3); WHITE BLOOD COUNT 3.95 K/uL (4.8-10.8)
[2017-07-29 16:34] LABS: ALBUMIN 3.8 gm/dl (3.4-5.0); CREATININE 0.73 mg/dl (0.60-1.20); POTASSIUM 3.3 mmol/L (3.5-5.1)
[2017-07-29 16:37] LABS: TOTAL PROTEIN 7.3 gm/dl (6.4-8.2)
[2017-07-29] MEDS ORDERED: PROCHLORPERAZINE 5 MG/ML 2 ML VIAL IV STA (16:37)
[2017-07-29] MEDS ORDERED: DiphenhydrAMINE HCL 50 MG/ML VIAL IV STA (16:37)
--- NOTE | 2017-07-29 17:31 | DIAGNOSTIC IMAGING REPORT ---
ABDOMEN 2VIEW W/PA CHEST RTN CLINICAL HISTORY: Vomiting and diarrhea. Hypertension. COMPARISON STUDY: Chest x-ray dated 08/06/1969 FINDINGS: The erect chest reveals no evidence of free air. There is no evidence of focal pulmonary consolidation.] There are bilateral breast implants. Erect and supine views of the abdomen reveal no abnormally dilated loops of large or small bowel. There are no transition zone to indicate bowel obstruction. IMPRESSION: No evidence of bowel obstruction. No evidence of free air. Electronically signed by: Pb Mendoza M.D. 07/29/2017 5:30 PM Dictated Date/Time: 07/29/2017 5:29 PM
[2017-07-29 17:39] VITALS: BP 136/103; PULSE 82; O2SAT 100
--- NOTE | 2017-07-29 18:02 | EMERGENCY ROOM VISIT NOTE ---
History First contact with patient: 16:10 Chief Complaint: DEHYDRATION Stated Complaint: DEHYDRATION,NAUSEA,MIGRAINE,CRAMPS,TIRED,ACHY History of Present Illness Patient is a 32-year-old female who was initially seen and assessed by Tawny Rodriguez PA-C. Care was turned over to me. Please refer to Tawny's history and physical exam. Briefly, patient is an otherwise healthy 32-year-old female who presents to the emergency department feeling dehydrated. She is about 10 days ago, she had a 36 hour vomiting and diarrheal illness, which resolved, but she has subsequently developed some ongoing nausea, anorexia, vomiting and loose stools. She has intermittent headaches, feels fatigued, and has had lightheadedness and dizziness. Patient reports that she has had problems with dehydration in the past. She does report a history of migraines, but states that she has not had severe migraines since her . She has had headaches, which are a constant 4/10 with [id number]-[id number] medications. Review of Systems Review of systems as per HPI. All other systems reviewed were negative. 10 systems reviewed. Past Medical/Surgical History Medical Problems: (1) Abdominal pain complicating , antepartum (2) Gestational hypertension (3) Gestational hypertension w/o significant proteinuria in 3rd trimester (4) Hyperten preg NOS-unspec (5) Hypertension complicating (6) Migraine Unspecified W/O Intractable Migraine (7) Preeclampsia, severe (8) contractions Electronic medical records are reviewed and summarized as above/below. See Problem List. Social History Smoking Status: Never Smoker Alcohol Use: occasionally Marital Status: single Occupation Status: employed Current/Historical Medications No Active Prescriptions or Reported Meds Physical Exam Vital Signs Date Time Temp Pulse Resp B/P (MAP) Pulse Ox O2 Delivery O2 Flow Rate FiO2 07/29/17 17:39 82 18 136/103 100 Room Air 07/29/17 16:48 83 18 167/112 99 Room Air 07/29/17 15:42 92 20 186/108 100 Room Air 07/29/17 14:47 37.0 81 18 92 Room Air Physical Exam CONSTITUTIONAL: Patient is a petite, well-appearing 32-year-old female who is awake and alert and laying supine on the gurney in no acute distress. IV fluids are infusing. Review of her vital signs no blood pressure was initially documented at 186/108, repeat blood pressure on the monitor while I am in the exam room is 157/112. CARDIOVASCULAR: Regular rate and rhythm. RESPIRATORY: Breath sounds equal and clear to auscultation. ABDOMEN: Bowel sounds are present. Abdomen is soft, nontender and nondistended. INTEGUMENTARY: No lesions or rash, normal skin turgor. LYMPH: No lymphadenopathy. Medical Decision & Procedures ER Provider Diagnostic Interpretation: ABDOMEN 2VIEW W/PA CHEST RTN CLINICAL HISTORY: Vomiting and diarrhea. Hypertension. COMPARISON STUDY: Chest x-ray dated 08/06/1969 FINDINGS: The erect chest reveals no evidence of free air. There is no evidence of focal pulmonary consolidation.] There are bilateral breast implants. Erect and supine views of the abdomen reveal no abnormally dilated loops of large or small bowel. There are no transition zone to indicate bowel obstruction. IMPRESSION: No evidence of bowel obstruction. No evidence of free air. Laboratory Results 07/29/17 15:59 Red Blood Count 4.52, Mean Corpuscular Volume 87.2, Mean Corpuscular Hemoglobin 31.4, Mean Corpuscular Hemoglobin Concent 36.0, Mean Platelet Volume 9.3, Neutrophils (%) (Auto) 57.2, Lymphocytes (%) (Auto) 32.9, Monocytes (%) (Auto) 7.8, Eosinophils (%) (Auto) 1.3, Basophils (%) (Auto) 0.5, Neutrophils # (Auto) 2.26, Lymphocytes # (Auto) 1.30, Monocytes # (Auto) 0.31, Eosinophils # (Auto) 0.05, Basophils # (Auto) 0.02 07/29/17 15:59 Test 07/29/17 15:59 07/29/17 16:35 07/29/17 17:40 White Blood Count 3.95 K/uL (4.8-10.8) Red Blood Count 4.52 M/uL (4.2-5.4) Hemoglobin 14.2 g/dL (12.0-16.0) Hematocrit 39.4 % (37-47) Mean Corpuscular Volume 87.2 fL (80-100) Mean Corpuscular Hemoglobin 31.4 pg (25-34) Mean Corpuscular Hemoglobin Concent 36.0 g/dl (32-36) Platelet Count 226 K/uL (130-400) Mean Platelet Volume 9.3 fL (7.4-10.4) Neutrophils (%) (Auto) 57.2 % Lymphocytes (%) (Auto) 32.9 % Monocytes (%) (Auto) 7.8 % Eosinophils (%) (Auto) 1.3 % Basophils (%) (Auto) 0.5 % Neutrophils # (Auto) 2.26 K/uL (1.4-6.5) Lymphocytes # (Auto) 1.30 K/uL (1.2-3.4) Monocytes # (Auto) 0.31 K/uL (0.11-0.59) Eosinophils # (Auto) 0.05 K/uL (0-0.5) Basophils # (Auto) 0.02 K/uL (0-0.2) RDW Standard Deviation 41.2 fL (36.4-46.3) RDW Coefficient of Variation 12.9 % (11.5-14.5) Immature Granulocyte % (Auto) 0.3 % Immature Granulocyte # (Auto) 0.01 K/uL (0.00-0.02) Anion Gap 2.0 mmol/L (3-11) Est Creatinine Clear Calc Drug Dose 80.8 ml/min Estimated GFR () 128.1 Estimated GFR (Non- 110.5 BUN/Creatinine Ratio 18.5 (10-20) Calcium Level 9.0 mg/dl (8.5-10.1) Total Bilirubin 0.6 mg/dl (0.2-1) Direct Bilirubin 0.1 mg/dl (0-0.2) Aspartate Amino Transf (AST/SGOT) 16 U/L (15-37) Alanine Aminotransferase (ALT/SGPT) 22 U/L (12-78) Alkaline Phosphatase 55 U/L (45-117) Total Protein 7.3 gm/dl (6.4-8.2) Albumin 3.8 gm/dl (3.4-5.0) Lipase 97 U/L (73-393) Troponin I < 0.015 ng/ml (0-0.045) Thyroid Stimulating Hormone (TSH) 0.814 uIu/ml (0.300-4.500) Urine Color YELLOW Urine Appearance CLEAR (CLEAR) Urine pH 5.5 (4.5-7.5) Urine Specific [place] 1.020 (1.000-1.030) Urine Protein NEG (NEG) Urine Glucose (UA) NEG (NEG) Urine Ketones TRACE (NEG) Urine Occult Blood NEG (NEG) Urine Nitrite NEG (NEG) Urine Bilirubin NEG (NEG) Urine Urobilinogen NEG (NEG) Urine Leukocyte Esterase NEG (NEG) Medications Administered Medications (Trade) Dose Ordered Sig/Donaldo Route Start Time Stop Time Status Last Admin Dose Admin Sodium Chloride 1,000 ml @ 999 mls/hr Q1H1M STAT IV 07/29/17 15:34 07/29/17 16:34 DC 07/29/17 16:13 999 MLS/HR Ketorolac Tromethamine (Toradol Inj) 30 mg NOW STAT IV 07/29/17 15:34 07/29/17 15:36 DC 07/29/17 16:13 30 MG Ondansetron HCl (Zofran Inj) 4 mg NOW STAT IV 07/29/17 15:34 07/29/17 15:36 DC 07/29/17 16:13 4 MG Prochlorperazine Edisylate (Compazine Inj) 10 mg NOW STAT IV 07/29/17 16:37 07/29/17 16:39 DC 07/29/17 16:48 10 MG Diphenhydramine HCl (Benadryl Inj) 25 mg NOW STAT IV 07/29/17 16:37 07/29/17 16:39 DC 07/29/17 16:48 25 MG Sodium Chloride 1,000 ml @ 999 mls/hr Q1H1M STAT IV 07/29/17 16:37 07/29/17 17:37 DC 07/29/17 16:48 999 MLS/HR ECG Per My Interpretation Indication: other (Hypertension) Rate (beats per minute): 68 Rhythm: sinus with SA Findings: no acute ischemic change, no ectopy Comparison ECG Date: no prior available ED Course The patient was seen and assessed as above. Brief signout was obtained from Tawny Rodriguez PA-C. Initial laboratory and diagnostic imaging studies have been ordered by Tawny. After my assessment of the patient, additional orders were placed. IV lock was initiated. Laboratory studies were collected including CBC with differential, CRP, LFTs, lipase, troponin urinalysis and TSH. Patient was ordered a total of 2 L of normal saline solution IV bolus, was given Toradol 30 mg and Zofran 4 mg initially. This gave her good relief of her nausea, and only mild relief of her headache. She was agreeable to additional medication for her headache, and was given Benadryl 25 mg and Compazine 10 mg IV. EKG was performed due to the hypertension, and acute abdominal series was obtained due to the vomiting and diarrheal illness as well as the elevated blood pressure readings. Patient's laboratory studies were largely unrevealing. White count is just low slightly low at 3.95, H&H is normal. No left shift or bandemia. Electrolytes are without significant abnormality, potassium is just slightly low at 3.3. Renal function is normal. Transaminases are not elevated. Lipase is not indicative of acute pancreatitis. Troponin is negative 1, and TSH is indicative of a euthyroid state. The patient declined any oral or IV repletion of her potassium. Acute abdominal series was obtained and was unremarkable. EKG was as noted above. The patient returned from x-ray and notified her nurse that she would like to leave the emergency department so that she could get home to her children. She was able to provide a urine sample at that time which was dipped and was clear. I did review all of her laboratory and diagnostic imaging studies with her. Her blood pressure had improved, and at discharge was 136/103. The patient presents emergency department for evaluation of what she suspects is dehydration after having a vomiting and diarrheal illness. She was found to be hypertensive in the emergency department, inconsistent with dehydration, and therefore this did prompt further workup. Her blood pressure improved with analgesia and IV hydration. She reported complete relief of her headache with the IV medications, and rated her pain a 0/10 at discharge. Her blood pressure may have also improved with better pain relief. She has a benign neuro and abdominal exam at this time. She is feeling better with the IV hydration. She is anxious to get home to her family. She was encouraged to check her blood pressure frequently at different times of the day and record the readings, and follow-up closely with her primary care provider for further care and evaluation of her high blood pressure. She expressed understanding of this and was agreeable. She was discharged home with her mother in stable condition. Differential diagnoses entertained included infectious versus inflammatory colitis/enteritis, food borne illness, hypertensive disorder, hypertensive urgency/emergency, migraine, dehydration, electrolyte or metabolic abnormality, among others. Medical Decision See emergency department course. Medication Reconcilliation Current Medication List: was personally reviewed by me Blood Pressure Screening Patient's blood pressure: Elevated blood pressure Blood pressure disposition: Referred to PCP Impression Primary Impression: Nausea & vomiting Additional Impression: Elevated blood pressure reading Departure Information Prescriptions No Active Prescriptions or Reported Meds Referrals Dmitry Mcgill M.D.([facility]) (PCP) Patient Instructions My [facility] [place] Additional Instructions DO NOT drive, drink alcohol, operate machinery, or perform dangerous activities today. You were given medications in the ER that can affect your ability to safely function or operate a vehicle. Rest and drink plenty of fluids as tolerated. Slow sips of water or sports drinks are recommended instead of large amounts all at once. Continue current medications. Once your stomach is settled start with a clear liquid diet (jello, soup broth, etc.) and then advance as tolerated. You should avoid full, heavy meals for about 24 hrs from the time your symptoms resolved. Return to the ER for persistent vomiting, fevers, abdominal pain, chest pains, difficulty breathing, black or bloody stools, worsening of your condition, or as needed. Follow up with your primary physician in 2-3 days for a recheck of your current condition. Your blood pressure was noted to be elevated here in the emergency department. You should check your blood pressure frequently at different times during the day, for the next several weeks, and record the blood pressure readings. Take this with you to your doctor for follow-up. Problem Qualifiers
--- NOTE | 2017-08-01 13:57 | EMERGENCY ROOM VISIT NOTE ---
History First contact with patient: 14:55 Chief Complaint: DEHYDRATION Stated Complaint: DEHYDRATION,NAUSEA,MIGRAINE,CRAMPS,TIRED,ACHY History of Present Illness The patient is a 32 year old female who presents to the Emergency Room with complaints of nausea vomiting and weight loss. The patient states that she thought she had a GI bug 10 days ago which lasted 36 hours. She states she had nausea vomiting and diarrhea. She then thought she was getting better but continued to have the nausea and vomiting. The patient denies any associated fever, head congestion, cough, chest pain or shortness of breath. The patient denies any abdominal pain. The patient does admit to a 9 pound weight loss since the symptoms started. The patient states that her stools were normal after the 36 hours and then Thursday she had a loose bowel movement and one on Thursday but none since that time. The patient states she has been trying to drink water but it comes up either immediately or within 30 minutes. The patient also states that she is under a lot of stress right now that she is going through divorce and selling her house. She has young children. The patient denies any urinary symptoms. Patient states she has had decreased frequency of urination she thinks due to dehydration. The patient also is admitting to a 6 out of 10 headache. She took Tylenol but is requesting Motrin. Review of Systems 10 system review was performed and was negative unless stated otherwise history of present illness. Past Medical/Surgical History Medical Problems: (1) Abdominal pain complicating , antepartum (2) Gestational hypertension (3) Gestational hypertension w/o significant proteinuria in 3rd trimester (4) Hyperten preg NOS-unspec (5) Hypertension complicating (6) Migraine Unspecified W/O Intractable Migraine (7) Preeclampsia, severe (8) contractions Social History Smoking Status: Never Smoker Alcohol Use: occasionally Marital Status: single Occupation Status: employed Current/Historical Medications No Active Prescriptions or Reported Meds Physical Exam Vital Signs Date Time Temp Pulse Resp B/P (MAP) Pulse Ox O2 Delivery O2 Flow Rate FiO2 07/29/17 17:39 82 18 136/103 100 Room Air 07/29/17 16:48 83 18 167/112 99 Room Air 07/29/17 15:42 92 20 186/108 100 Room Air 07/29/17 14:47 37.0 81 18 92 Room Air Physical Exam GENERAL: Thin 32-year-old female appears in no acute distress. MENTAL Status: Alert and oriented 3. MOUTH: Mucosa is slightly dry. NECK: Supple, no lymphadenopathy noted. No carotid bruits noted. LUNGS: Clear auscultation without wheezes rales or rhonchi. CARDIAC: Regular rate and rhythm without murmur. Pulses is full and equal throughout. BACK: No CVA tenderness noted. ABDOMEN: Positive bowel sounds all 4 quadrants. Soft, nontender to palpation without organomegaly or masses. EXTREMITIES: No cyanosis or edema noted. Medical Decision & Procedures Laboratory Results 07/29/17 15:59 Red Blood Count 4.52, Mean Corpuscular Volume 87.2, Mean Corpuscular Hemoglobin 31.4, Mean Corpuscular Hemoglobin Concent 36.0, Mean Platelet Volume 9.3, Neutrophils (%) (Auto) 57.2, Lymphocytes (%) (Auto) 32.9, Monocytes (%) (Auto) 7.8, Eosinophils (%) (Auto) 1.3, Basophils (%) (Auto) 0.5, Neutrophils # (Auto) 2.26, Lymphocytes # (Auto) 1.30, Monocytes # (Auto) 0.31, Eosinophils # (Auto) 0.05, Basophils # (Auto) 0.02 07/29/17 15:59 Test 07/29/17 15:59 07/29/17 16:35 07/29/17 17:40 White Blood Count 3.95 K/uL (4.8-10.8) Red Blood Count 4.52 M/uL (4.2-5.4) Hemoglobin 14.2 g/dL (12.0-16.0) Hematocrit 39.4 % (37-47) Mean Corpuscular Volume 87.2 fL (80-100) Mean Corpuscular Hemoglobin 31.4 pg (25-34) Mean Corpuscular Hemoglobin Concent 36.0 g/dl (32-36) Platelet Count 226 K/uL (130-400) Mean Platelet Volume 9.3 fL (7.4-10.4) Neutrophils (%) (Auto) 57.2 % Lymphocytes (%) (Auto) 32.9 % Monocytes (%) (Auto) 7.8 % Eosinophils (%) (Auto) 1.3 % Basophils (%) (Auto) 0.5 % Neutrophils # (Auto) 2.26 K/uL (1.4-6.5) Lymphocytes # (Auto) 1.30 K/uL (1.2-3.4) Monocytes # (Auto) 0.31 K/uL (0.11-0.59) Eosinophils # (Auto) 0.05 K/uL (0-0.5) Basophils # (Auto) 0.02 K/uL (0-0.2) RDW Standard Deviation 41.2 fL (36.4-46.3) RDW Coefficient of Variation 12.9 % (11.5-14.5) Immature Granulocyte % (Auto) 0.3 % Immature Granulocyte # (Auto) 0.01 K/uL (0.00-0.02) Anion Gap 2.0 mmol/L (3-11) Est Creatinine Clear Calc Drug Dose 80.8 ml/min Estimated GFR () 128.1 Estimated GFR (Non- 110.5 BUN/Creatinine Ratio 18.5 (10-20) Calcium Level 9.0 mg/dl (8.5-10.1) Total Bilirubin 0.6 mg/dl (0.2-1) Direct Bilirubin 0.1 mg/dl (0-0.2) Aspartate Amino Transf (AST/SGOT) 16 U/L (15-37) Alanine Aminotransferase (ALT/SGPT) 22 U/L (12-78) Alkaline Phosphatase 55 U/L (45-117) Total Protein 7.3 gm/dl (6.4-8.2) Albumin 3.8 gm/dl (3.4-5.0) Lipase 97 U/L (73-393) Troponin I < 0.015 ng/ml (0-0.045) Thyroid Stimulating Hormone (TSH) 0.814 uIu/ml (0.300-4.500) Urine Color YELLOW Urine Appearance CLEAR (CLEAR) Urine pH 5.5 (4.5-7.5) Urine Specific [place] 1.020 (1.000-1.030) Urine Protein NEG (NEG) Urine Glucose (UA) NEG (NEG) Urine Ketones TRACE (NEG) Urine Occult Blood NEG (NEG) Urine Nitrite NEG (NEG) Urine Bilirubin NEG (NEG) Urine Urobilinogen NEG (NEG) Urine Leukocyte Esterase NEG (NEG) Medications Administered Medications (Trade) Dose Ordered Sig/Donaldo Route Start Time Stop Time Status Last Admin Dose Admin Sodium Chloride 1,000 ml @ 999 mls/hr Q1H1M STAT IV 07/29/17 15:34 07/29/17 16:34 DC 07/29/17 16:13 999 MLS/HR Ketorolac Tromethamine (Toradol Inj) 30 mg NOW STAT IV 07/29/17 15:34 07/29/17 15:36 DC 07/29/17 16:13 30 MG Ondansetron HCl (Zofran Inj) 4 mg NOW STAT IV 07/29/17 15:34 07/29/17 15:36 DC 07/29/17 16:13 4 MG Prochlorperazine Edisylate (Compazine Inj) 10 mg NOW STAT IV 07/29/17 16:37 07/29/17 16:39 DC 07/29/17 16:48 10 MG Diphenhydramine HCl (Benadryl Inj) 25 mg NOW STAT IV 07/29/17 16:37 07/29/17 16:39 DC 07/29/17 16:48 25 MG Sodium Chloride 1,000 ml @ 999 mls/hr Q1H1M STAT IV 07/29/17 16:37 07/29/17 17:37 DC 07/29/17 16:48 999 MLS/HR ED Course The patient was evaluated. The patient's EMR medication list were reviewed. IV access was obtained. The patient was given 1 L of saline wide open. She was given Toradol 30 mg IV for headache and Zofran 4 mg IV push for nausea. CBC and differential, renal profile, LFTs and lipase levels were ordered. Urinalysis was ordered. Before labs were resulted I signed the case out Alyx Valerio. Please see her note for further patient care. Medical Decision Differential diagnosis include acute cholecystitis, acute gastritis, peptic ulcer disease, stress-induced nausea and vomiting [place] Drug Monitoring Program Search Results: patient reviewed within database Medication Reconcilliation Current Medication List: was personally reviewed by me Blood Pressure Screening Patient's blood pressure: Elevated blood pressure Impression Primary Impression: Nausea and vomiting Departure Information Prescriptions No Active Prescriptions or Reported Meds Referrals Dmitry Mcgill M.D. ([facility]) (PCP) Patient Instructions My [facility] Problem Qualifiers Primary Impression: Nausea and vomiting Vomiting type: unspecified Vomiting Intractability: unspecified Qualified Codes: R11.2 - Nausea with vomiting, unspecified
== END 2017-07-29 18:10 | disposition home or self-care (01) ==
LOC: C.EDB 14:30
DX: R11.2 Nausea with vomiting, unspecified (principal); R03.0 Elevated blood-pressure reading, without diagnosis of hypertension

== ENCOUNTER 2020-06-08 17:49 | Inpatient (IN) ==
[2020-06-08] MEDS ORDERED: OXYTOCIN 30 UNITS/500 ML BAG IV PRN ×2 (18:28→19:08)
[2020-06-08 18:57] LABS: Hematocrit (blood only) 32.8 % (37-47); Mean Corpuscular Hemoglobin 29.2 pg (25-34); Mean Corpuscular Hgb Conc 33.5 g/dL (32-36); Mean Platelet Volume 10.1 fL (7.4-10.4); Platelet Count 287 K/uL (130-400); RDW Coefficient of Variation 14.7 % (11.5-14.5); RDW Standard Deviation 45.7 fL (36.4-46.3); Red Blood Count 3.77 M/uL (4.2-5.4); White Blood Count 10.73 K/uL (4.8-10.8)
--- NOTE | 2020-06-08 19:13 | History & Physical Report ---
Date of Service June 08, 2020 Assessment & Plan (1) Gestational hypertension: (2) Gestational hypertension w/o significant proteinuria in 3rd trimester: 35 yo at 38.4 with Gest HTN, no severe features VSS Afebrile FHR reassuring GBS neg Cervix favorable Plan to admit, labs, monitor, Oxytocin, AROM when able All questions were answered Admission and Anticipated Discharge Date Admission Date: June 08, 2020 History of Present Illness Primary Care Provider: NO PCP Patient is a 35 yo at 38.4 wks who was sent from office for Elevated BP's and trace protein in urine Her labs were normal and she asked to go home last night and come back today No complaints No PAUL/ Change in vision/ N&V/ epig or pain RUQ pain, ribs No ctxs/ LOF/VB +FM's H/o PTL Migraines GBS neg No symptoms of COVID Allergies Allergy/AdvReac Type Severity Reaction Status Date / Time butorphanol AdvReac Unknown hallucinate Verified 05/07/18 15:40 Home Medications Medication Instructions Recorded Confirmed Type prenat.vits,edgard,rks-eint-yspde 1 tab PO DAILY 06/08/20 06/08/20 History [ Vitamin] Patient History Medical History Gestational hypertension w/o significant proteinuria in 3rd trimester Preeclampsia, severe Spontaneous miscarriage Surgical History History of dilation and curettage Social History Smoking Status: Never smoker Hx Alcohol Use: No Hx Substance Use: No Preferred Language: [place] Beliefs That Will Affect Care: None marital status: Single Current Living Situation: Family current occupational status: employed Other Information That Helps Us Care for You: No Feels Safe at Home: Yes Safety Concerns: Feels Safe At This Time Assistive Devices: None OB History 2 SAB 1 FT 1 at 36+ wks CORE FILER History No h/o HSV/ Chlamydia/ GC Review of Systems All systems reviewed & are unremarkable except as noted in HPI & below as per Subjective / HPI Physical Exam Constitutional: WD/WN, vitals as above well developed NAD Gastrointestinal (Abdomen): normal bowel sounds, soft, nontender, no hepatosplenomegaly (Gravid) Genitourinary: normal external appearance Manual OB Exam: + cervical dilation 4 cm, + cervical effacement 50% and + station high OB Exam Monitor Tracing: + external uterine monitor used and + category I Results & Data ([facility]) Vital Signs (Past 12 Hours) Vital Signs Temp Pulse Resp BP 06/08/20 18:13 36.9 C 85 20 140/94 06/08/20 18:04 85 140/94
[2020-06-08] MEDS: LACTATED RINGER'S 1,000 ML IV PRN ×2 (19:15→21:57)
[2020-06-08 19:41] LABS: Albumin Level 2.6 gm/dl (3.4-5.0); BUN Creatinine Ratio 16.8 (10-20); Calcium 8.6 mg/dl (8.5-10.1); Creatinine Clr Calc Pharmacy 114.1 ml/min; Est GFR (African American) 140.4; Est GFR (Non-African American) 121.1; Potassium 3.6 mmol/L (3.5-5.1)
[2020-06-08 19:44] LABS: Albumin Globulin Ratio 0.6 (0.9-2); Bilirubin,Total 0.2 mg/dl (0.2-1); Globulin 4.1 gm/dl (2.5-4.0); Total Protein 6.7 gm/dl (6.4-8.2)
[2020-06-08] MEDS ORDERED: BUPIVACAINE 0.25% 30 ML VIAL ONE (21:22)
[2020-06-08] MEDS ORDERED: ePHEDrine sulfate 50 MG/ML AMP ONE (21:22)
[2020-06-08] MEDS ORDERED: SODIUM CHLORIDE 0.9% INJ 10 ML VIAL ONE (21:22)
[2020-06-08] MEDS ORDERED: fentaNYL citrate 100 MCG/2 ML VIAL ONE (21:23)
[2020-06-08] MEDS ORDERED: fentaNYL 2MCG/ML ROPIVACAINE 1.25MG/ML 100 ML BAG EPI ONE (21:23)
--- NOTE | 2020-06-08 21:31 | Anesthesiology Consultation ---
Date of Service June 08, 2020 Assessment & Plan (1) Encounter for pre-operative examination: Chart Review Chart Review: Patient NOT seen in Pre Admission Testing and Acceptable Risk for Labor Epidural Consults Requested none ASA ASA2 Proposed Anesthesia Anesthesia Type: Labor Epidural Risk / Benefits Reviewed With: PT / POA / Parent / Guardian, Accepts Plan and Informed Consent Obtained History Height/Weight Height: 5 ft 3 in Weight: 56.245 kg Allergies Allergy/AdvReac Type Severity Reaction Status Date / Time butorphanol AdvReac Unknown hallucinate Verified 05/07/18 15:40 Medications Home Medications Medication Instructions Recorded Confirmed Last Taken prenat.vits,edgard,hhr-nkts-ohcsq 1 tab PO DAILY 06/08/20 06/08/20 Unknown [ Vitamin] Active Medications Generic Name Dose Route Start Last Admin Trade Name Freq PRN Reason Stop Dose Admin Lactated Ringer's 1,000 mls @ 150 mls/hr 06/08/20 18:28 06/08/20 21:15 Lr IV 06/10/20 18:27 999 mls/hr .Q6H40M PRN Infusion L&D Protocol Protocol Oxytocin 30 units in 500 mls @ 4 mls/hr 06/08/20 19:08 06/08/20 20:07 Pitocin IV 06/10/20 19:07 0.24 units/hr .Q24H PRN 4 mls/hr Labor Induction/Augmentation Titration Protocol 0.24 UNITS/HR NPO Date Last Intake of Fluids: 06/08/20 Time Last Intake of Fluids: 21:30 Date Last Intake of Solids: 06/08/20 Time Last Intake of Solids: 14:00 Past Medical History Medical History Gestational hypertension w/o significant proteinuria in 3rd trimester Preeclampsia, severe Spontaneous miscarriage Exercise / Class Metabolic Activity III < 4 Walking/Shop/Light housework Past Surgical History Surgical History History of dilation and curettage Past Anesthesia History No Hx of Anesthesia Complications History of PONV No Hx of PONV Social History Smoking Status: Never smoker Hx Alcohol Use: No Hx Substance Use: No substance use type: does not use Review of Systems Negative for chest pain or shortness of breath. Patient denies history of abnormal bleeding or bleeding disorder. Patient denies active use of anticoagulants other than low dose aspirin. Patient denies numbness, tingling or weakness in lower extremities. Physical Exam Vital Signs Last Vital Signs Temp 37.0 C 06/08/20 19:05 Pulse 73 06/08/20 21:30 Resp 20 06/08/20 18:13 BP 156/90 H 06/08/20 20:30 Pulse Ox 100 06/08/20 21:30 Constitutional not obese ENMT Mouth: no TMJ abnormality and oral opening not small Thyromental Distance: > or= 3.5 Finger Breadths Mallampati Class: I Neck normal visual inspection; neck extension not limited Respiratory normal respiratory effort Auscultation: lungs clear to auscultation bilaterally Cardiovascular Rate/Rhythm: regular rate and regular rhythm Heart Sounds: no murmur Neurologic moves all extremities Motor/Sensory: no sensory deficit Psychiatric Orientation: alert and oriented x 3 Testing Laboratory Results 06/08/20 18:50 06/08/20 18:50
[2020-06-08] MEDS ORDERED: NALOXONE HCL 0.4 MG/1 ML VIAL/CARP IV PRN (21:38)
[2020-06-08] MEDS ORDERED: NALOXONE HCL 1 MG in SODIUM CHLORIDE 0.9% 1000ML 1,000 ML IV PRN (21:38)
[2020-06-08] MEDS ORDERED: diphenhydrAMINE 50 MG/ML VIAL IV PRN (21:38)
[2020-06-08] MEDS ORDERED: ONDANSETRON INJ 2 MG/ML 2 ML VIAL IV PRN (21:38)
[2020-06-08] MEDS ORDERED: ePHEDrine sulfate 50 MG/ML AMP IV PRN (21:38)
[2020-06-08] MEDS ORDERED: fentaNYL 2MCG/ML ROPIVACAINE 1.25MG/ML 100 ML BAG EPI PRN (21:38)
[2020-06-08] MEDS ORDERED: FLUCONAZOLE 50 MG TAB PO ONE (22:41)
--- NOTE | 2020-06-08 22:43 | Obstetrical Progress Note ---
Date of Service June 08, 2020 Assessment & Plan Admission and Anticipated Discharge Date Admission Date: June 08, 2020 Subjective Patient is comfortable, received epidural for pain Asking for AROM VE: 4/ 50%/ -2, AROM'ed abundant clear fluid, vaginal candidal d/c++ FHR categ I [place] ctxs q 2-4 min, Oxytocin is at 6 miu/min Diflucan PO once Continue to monitor Results & Data ([facility]) Vital Signs (Past 12 Hours) Vital Signs Temp Pulse Resp BP Pulse Ox 06/08/20 22:36 91 H 99 06/08/20 22:31 77 97 06/08/20 22:26 69 98 06/08/20 22:24 67 152/72 H 06/08/20 22:22 36.8 C 18 06/08/20 22:21 67 99 06/08/20 22:20 70 170/94 H 06/08/20 22:16 69 168/90 H 99 06/08/20 22:14 64 153/78 H 06/08/20 22:12 64 166/79 H 06/08/20 22:11 67 161/75 H 97 06/08/20 22:10 18 06/08/20 22:08 70 146/89 H 06/08/20 22:06 73 155/91 H 99 06/08/20 22:05 77 20 157/86 H 06/08/20 22:02 68 192/112 H 06/08/20 22:01 69 99 06/08/20 22:00 67 18 186/105 H 06/08/20 21:56 67 99 06/08/20 21:42 80 91 06/08/20 21:40 80 98 06/08/20 21:35 78 97 06/08/20 21:30 73 100 06/08/20 20:30 69 156/90 H 06/08/20 19:28 78 147/93 H 06/08/20 19:13 75 158/100 H 06/08/20 19:05 37.0 C 06/08/20 18:13 36.9 C 85 20 140/94 06/08/20 18:04 85 140/94
[2020-06-08] MEDS ORDERED: LABETALOL HCL 100 MG TAB PO ONE (23:58)
[2020-06-09] MEDS ORDERED: fentaNYL citrate 100 MCG/2 ML VIAL ONE (00:14)
[2020-06-09] MEDS ORDERED: BUPIVACAINE 0.25% 30 ML VIAL ONE (00:15)
[2020-06-09] MEDS ORDERED: NURSING L&D Epidural Breakthrough Pain Update ONE (00:43)
[2020-06-09] MEDS ORDERED: HYDROCORTISONE ACETATE 25 MG SUPP PR PRN (01:51)
[2020-06-09] MEDS ORDERED: ACETAMINOPHEN 325 MG TAB PO PRN (01:51)
[2020-06-09] MEDS ORDERED: DIPHTHERIA/TETANUS/PERTUSSIS 0.5 ML SYR/VIAL IM ONE (01:51)
[2020-06-09] MEDS ORDERED: OXYTOCIN 30 UNITS/500 ML BAG IV PRN (01:51)
[2020-06-09] MEDS ORDERED: SUPERCREAM 0.870% 15 GM JAR EXT PRN (01:51)
[2020-06-09] MEDS ORDERED: BENZOCAINE 20% AER SPR 82.5 GM CAN EXT PRN (01:51)
[2020-06-09] MEDS ORDERED: MEASLES, MUMPS & RUBELLA VIRUS VIAL SQ ONE (01:51)
[2020-06-09] MEDS ORDERED: bisacodyL 10 MG SUPP PR PRN (01:51)
--- NOTE | 2020-06-09 02:54 | Anesthesia Procedure Note ---
Date of Service June 09, 2020 Anesthesia Post Epidural Note Vital Signs Vital Signs: Temp Pulse Resp BP Pulse Ox 37.0 C 64 16 147/66 H 97 06/09/20 01:51 06/09/20 02:50 06/09/20 02:34 06/09/20 02:50 06/09/20 01:49 Pain Intensity Head: Pain Intensity: 0 Notes Mental Status: alert / awake / arousable and participated in evaluation Nausea / Vomiting: adequately controlled Pain: adequately controlled Airway Patency, RR, SpO2: stable & adequate BP & HR: stable & adequate Hydration State: stable & adequate Neuraxial Anesthesia: was administered and sensory block is resolving Anesthetic Complications: no major complications apparent and Pt Satisfied with anesthetic care Epidural: Removed without complications and With tip intact Notes: Epidural site clean, dry and intact. No signs of edema, erythema or bruising at insertion site. Pt instructed to request anesthesia if she has residual lower extremity numbness or if she develops lower extremity pain or weakness, back pain or headache.
[2020-06-09] MEDS: IBUPROFEN 600 MG TAB PO PRN ×4 (06:31→23:37)
--- NOTE | 2020-06-09 08:51 | Delivery Summary ---
DATE OF OPERATION: 06/09/2020 DETAILS OF DELIVERY: The patient was found to be fully dilated and desired to push. She pushed only once and delivered the head without difficulty. Shoulders came right after the head spontaneously and baby was handed to the mother where mouth and nose were suctioned. Cord was clamped x2 and cut. Cord blood was obtained. Vagina and perineum were checked, they were found to be intact. No lacerations were found. The placenta was found to be in the vagina, delivered spontaneous as intact and complete. Uterus was explored, found to be empty. Lower segment was cleared of all clots and debris. Fundus was firm. EBL was 100 mL. Mom and baby tolerated the procedure well. Sponge, lap, instrument count was correct x2. Baby was a viable female infant, Apgars 9/9. No complications happened and I was present during whole procedure. I attest to the content of the Intraoperative Record and any orders documented therein. Any exceptions are noted below. MTDD
[2020-06-09] MEDS: DOCUSATE SODIUM 100 MG CAP PO SCH ×2 (09:22→20:56)
[2020-06-09] MEDS: FERROUS SULFATE 325 MG TAB PO SCH (09:22)
[2020-06-09] MEDS: PRENATAL VITAMIN 1 TAB PO SCH (09:22)
[2020-06-10 06:36] LABS: Hematocrit (blood only) 30.1 % (37-47); Hemoglobin 10.4 g/dL (12.0-16.0); Mean Corpuscular Hemoglobin 30.3 pg (25-34); Mean Corpuscular Hgb Conc 34.6 g/dL (32-36); Mean Corpuscular Volume 87.8 fL (80-100); Mean Platelet Volume 10.7 fL (7.4-10.4); Platelet Count 286 K/uL (130-400); RDW Coefficient of Variation 14.8 % (11.5-14.5); RDW Standard Deviation 47.3 fL (36.4-46.3); Red Blood Count 3.43 M/uL (4.2-5.4); White Blood Count 11.94 K/uL (4.8-10.8)
[2020-06-10] MEDS: PRENATAL VITAMIN 1 TAB PO SCH (08:41)
[2020-06-10] MEDS: FERROUS SULFATE 325 MG TAB PO SCH (08:41)
[2020-06-10] MEDS: DOCUSATE SODIUM 100 MG CAP PO SCH (08:41)
[2020-06-10] MEDS: IBUPROFEN 600 MG TAB PO PRN (08:41)
--- NOTE | 2020-06-10 10:03 | Obstetrical Progress Note ---
Date of Service June 10, 2020 Assessment & Plan (1) Normal course: PPd #2 elevated BP cbc and CMP ordered started on labetalol will disch on labetel if labs are nml Results & Data ([facility]) Vital Signs (Past 12 Hours) Vital Signs Temp Pulse Pulse Resp BP BP Pulse Ox 06/10/20 07:50 154/88 H 06/10/20 07:45 36.8 C 60 18 173/95 H 99 06/10/20 01:59 36.4 C L 74 16 145/81 H 97 06/10/20 01:51 36.5 C 66 16 146/87 H 97 06/09/20 23:40 36.5 C 66 16 146/87 H 97
[2020-06-10 10:18] LABS: Hematocrit (blood only) 32.1 % (37-47); Mean Corpuscular Hemoglobin 29.8 pg (25-34); Mean Platelet Volume 9.9 fL (7.4-10.4); Platelet Count 302 K/uL (130-400); RDW Coefficient of Variation 14.7 % (11.5-14.5); RDW Standard Deviation 45.6 fL (36.4-46.3); Red Blood Count 3.69 M/uL (4.2-5.4); White Blood Count 13.17 K/uL (4.8-10.8)
[2020-06-10 10:43] LABS: Mean Corpuscular Hgb Conc 34.3 g/dL (32-36)
[2020-06-10] MEDS ORDERED: Nursing to Pharmacy Communication SCH (10:45)
[2020-06-10] MEDS ORDERED: LABETALOL HCL 100 MG TAB PO ONE (11:00)
[2020-06-10 11:15] LABS: Albumin Globulin Ratio 0.6 (0.9-2); Albumin Level 2.6 gm/dl (3.4-5.0); BUN Creatinine Ratio 11.7 (10-20); Bilirubin,Total 0.1 mg/dl (0.2-1); Calcium 9.4 mg/dl (8.5-10.1); Creatinine Clr Calc Pharmacy 95.9 ml/min; Est GFR (African American) 132.6; Est GFR (Non-African American) 114.4; Globulin 4.1 gm/dl (2.5-4.0); Potassium 4.3 mmol/L (3.5-5.1); Total Protein 6.7 gm/dl (6.4-8.2)
--- NOTE | 2020-06-10 13:35 | Progress Note ---
Date of Service June 10, 2020 Assessment & Plan Admission and Anticipated Discharge Date Admission Date: June 08, 2020 Subjective F/U BPs are nml PIH labs nml disch home with instructions Pt will f/u in office for BP checks Results & Data ([facility]) Vital Signs (Past 12 Hours) Vital Signs Temp Pulse Pulse Resp BP BP Pulse Ox 06/10/20 10:40 78 18 136/75 98 06/10/20 07:50 154/88 H 06/10/20 07:45 36.8 C 60 18 173/95 H 99 06/10/20 01:59 36.4 C L 74 16 145/81 H 97 06/10/20 01:51 36.5 C 66 16 146/87 H 97
[2020-06-10] MEDS ORDERED: LABETALOL HCL 100 MG TAB PO SCH (14:00)
[2020-06-10] MEDS ORDERED: bisacodyL 5 MG TABEC PO SCH (20:00)
== END 2020-06-10 15:10 | disposition home or self-care (01) ==
LOC: OPB 17:49 → 4S1 17:50 → 4S2 06-09 04:50